=== PATIENT | female | born 1990 | race Caucasian/White ===

== ENCOUNTER 2019-07-18 13:44 | Emergency (ER) | payer OTHER ==
[~2019-07-18] VITALS: Ht 157.5 cm; Wt 54.4 kg
[2019-07-18 13:54] VITALS: BP 106/58
--- NOTE | 2019-07-18 13:54 | NUR ---
FRITZ FLOWERS ALS AND PLACED IN BED 2.
--- NOTE | 2019-07-18 14:15 | NUR ---
Note sue in EDM - 07/18/19 at 1449 by [facility] PT MOTHER SAID SHE FOUND HER ON THE FLOOR. PT MOTHER SAYS SHE HIT HER HEAD. NO OBVIOUS DEFOMRITY NOTED OR HEMATOMAS NOTED ON THE HEAD.
--- NOTE | 2019-07-18 14:15 | NUR ---
PT BIBA TO ED C/O SYNCOPE EPISODE X 40MINS AGO. PT DENIES ANY HEAD INJURY WHEN FAINTING. NO RESP DISTRESS NOTED. LUNG SOUNDS CLEAR ALL THROUGHOUT. A &O X 4. NO PAIN JUST LALA. 2 PERRLA. HEART SOUNDS S1S2 PRESENT. . 22 WEEKS PREG. PT STATES THIS HAPPEN TO HER WHEN SHE WAS PREG THE LAST TIME WITH HER 1ST PREGNACY. VSS. NO DISTRESS NOTED. NO PMH.
[2019-07-18 15:30] VITALS: BP 104/57
--- NOTE | 2019-07-18 15:30 | NUR ---
Patient discharged with v/s stable. Written and verbal after care instructions given and explained. Patient verbalized understanding. Ambulatory with steady gait. All questions addressed prior to discharge. Advised to follow up with PMD.
== END 2019-07-18 15:30 | disposition home or self-care (01) ==
LOC: MED 13:44
DX: O26.892 Other specified pregnancy related conditions, second trimester (principal); R55 Syncope and collapse; Z3A.22 22 weeks gestation of pregnancy; Z88.8 Allergy status to other drugs, medicaments and biological substances
CPT/HCPCS: 93005; 99283